=== PATIENT | female | born 1995 | race American Indian/Alaskan Native ===

== ENCOUNTER 2020-08-26 20:52 | Emergency (ER) | payer MEDICAID ==
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
--- NOTE | 2020-08-27 08:59 | CR ---
Abdomen 1V Upright CLINICAL HISTORY: Abdominal pain FINDINGS: No free air is identified. Small intestinal gas pattern is nonspecific. There is fecal retention. No stones are seen. Impression: Moderate fecal retention Nonacute intestinal gas pattern
== END 2020-08-26 22:34 | disposition home or self-care (01) ==
LOC: JP.ED 20:52
DX: N30.01 Acute cystitis with hematuria (principal); K59.04 Chronic idiopathic constipation; E11.9 Type 2 diabetes mellitus without complications; Z72.0 Tobacco use; Z79.4 Long term (current) use of insulin
CPT/HCPCS: 74018; 74018-26; 80305-QW; 81001; 81025; 87086; 99284